=== PATIENT | male | born 1970 | race Caucasian/White ===

== ENCOUNTER 2016-10-07 13:24 | Emergency (ER) | payer BC ==
[~2016-10-07] VITALS: Wt 57.0 kg
[~2016-10-07 13:24] MED LIST: AMOX1TAB10 PO; HYDR-906 PO; INSU100C SC; LANT3I SC; METF500T4 PO
[2016-10-07 13:36] VITALS: Wt 57.0 kg
[2016-10-07] MEDS ORDERED: SOD CHLORIDE 0.9% 2,000 ML IV STA (17:11)
--- NOTE | 2016-10-07 17:23 | ERD ---
ER Documentation Chief Complaint Date/Time DATE: 10/07/16 TIME: 17:14 Chief Complaint ACCUCHECK SHOWED "HI" ASYMPTOMATIC: ACCUCHECK 430 IN TRAIGE @1320 HPI 46-year-old male history of testicular cancer in remission, insulin-dependent diabetes mellitus type 2, alcohol and methamphetamine abuse referred to the ED from his sober living facility for hyperglycemia. Patient states he took his regular metformin dose this morning along with 8 units of insulin after breakfast. They will not let him back until his blood sugar is controlled. He is otherwise asymptomatic. Denies chest pain or palpitation. No abdominal pain , nausea or vomiting. No headache or neck pain. Denies visual changes, focal weakness or numbness. No fevers or chills. Admits to last using crystal meth 2 days ago. ROS All systems reviewed and are negative except as per history of present illness. Medications Home Meds Active Scripts Metformin* (Glucophage*) 500 Mg Tab, 500 MG PO BID, #20 TAB Prov:DIONISIO DE GUZMAN MD 12/24/14 Reported Medications Levetiracetam* (Keppra*) 500 Mg Tablet, 500 MG PO BID, TAB 10/07/16 Insulin Glulisine (Apidra) 100 Units/Ml Soln, 8 UNITS SQ TID, #1 VIAL 10/07/16 Insulin Glargine* (Lantus*) 100 Unit/Ml Soln, 25 UNITS SC QHS, EA 12/24/14 Discontinued Reported Medications Insulin Lispro (Humalog) 100 U/Ml Cartridge, 0 SC SLIDING SCALE AC, EA 12/24/14 Discontinued Scripts Hydrocodone/Acetaminophen ([place] 5-325 Tablet) 1 Each Tablet, 2 TAB PO Q6H Y for PAIN, #20 TAB Prov:NEELAM ETIENNE PA-C 06/02/16 Amoxicillin/Potassium Clav (Amox-Clav 875-125 mg Tablet) 875-125 mg Tab, 1 TAB PO BID, #20 TAB Prov:NEELAM ETIENNE PA-C 06/02/16 Allergies Allergies: Coded Allergies: No Known Allergy (Unverified , 10/07/16) PMhx/Soc Reviewed in chart. As per HPI per History of Surgery: Yes (Orchiectomy, craniotomy.) Anesthesia Reaction: No Hx Neurological Disorder: No Hx Respiratory Disorders: No Hx Cardiac Disorders: No Hx Psychiatric Problems: No Hx Miscellaneous Medical Probl: Yes (DM, testicular cancer) Hx Alcohol Use: Yes Hx Substance Use: No Hx Tobacco Use: Yes FmHx No stroke or cancer. Not relevant to presenting complaint. Physical Exam Vitals Vital Signs Date Time Temp Pulse Resp B/P Pulse Ox O2 Delivery O2 Flow Rate FiO2 10/07/16 19:52 97.9 72 19 106/76 100 Room Air 10/07/16 18:30 97.4 65 20 146/97 100 Mechanical Ventilator 10/07/16 17:14 76 17 125/86 100 Room Air 10/07/16 13:36 98.0 98 18 120/80 99 Physical Exam Const: Alert, no acute distress. Head: Atraumatic Eyes: Normal Conjunctiva. Pupils equal reactive to light extraocular movements are intact no nystagmus. ENT: Normal External Ears, Nose and Mouth. Neck: Full range of motion. Nontender. Resp: Clear to auscultation bilaterally Cardio: Regular rate and rhythm, no murmurs Abd: Soft, non tender, distended. Bowel sounds are present. No rebound or guarding. Skin: No petechiae or rashes Back: No midline or flank tenderness Ext: No cyanosis, or edema Neur: Awake and alert. Cranial nerves II through XII are grossly intact no focal deficit observed Psych: Normal Mood and Affect Result Diagram: 10/07/16 1715 10/07/16 1715 Results 24 hrs Laboratory Tests Test 10/07/16 13:35 10/07/16 17:10 10/07/16 17:15 10/07/16 17:37 Bedside Glucose 430mg/dL 418mg/dL White Blood Count 4.510^3/ul Red Blood Count 4.2910^6/ul Hemoglobin 13.8g/dl Hematocrit 39.3% Mean Corpuscular Volume 91.6fl Mean Corpuscular Hemoglobin 32.2pg Mean Corpuscular Hemoglobin Concent 35.1g/dl Red Cell Distribution Width 13.5% Platelet Count 05531^3/UL Mean Platelet Volume 9.3fl Neutrophils % 58.8% Lymphocytes % 32.1% Monocytes % 5.8% Eosinophils % 2.7% Basophils % 0.4% Nucleated Red Blood Cells % 0.0/100WBC Neutrophils # 2.610^3/ul Lymphocytes # 1.410^3/ul Monocytes # 0.310^3/ul Eosinophils # 0.110^3/ul Basophils # 0.010^3/ul Nucleated Red Blood Cells # 0.010^3/ul Sodium Level 133mmol/L Potassium Level 4.5mmol/L Chloride Level 103mmol/L Carbon Dioxide Level 21mmol/L Anion Gap 14 Blood Urea Nitrogen 12mg/dl Creatinine 0.62mg/dl Glucose Level 427mg/dl Calcium Level 8.8mg/dl Bedside Urine pH (LAB) 6.0 Bedside Urine Protein (LAB) Negative Bedside Urine Glucose (UA) 0.50% Bedside Urine Ketones (LAB) Negative Bedside Urine Blood Negative Bedside Urine Nitrite (LAB) Negative Bedside Urine Leukocyte Esterase (L Negative Test 10/07/16 18:20 10/07/16 19:11 Bedside Glucose 300mg/dL 215mg/dL Current Medications Medications (Trade) Dose Ordered Sig/Sandie Route PRN Reason Start Time Stop Time Status Last Admin Dose Admin Sodium Chloride (NS) 2,000 ml @ 1,000 mls/hr Q2H STAT IV 10/07/16 17:11 10/07/16 19:10 DC 10/07/16 18:07 Insulin Human Lispro (Humalog) 10 unit ONCE STAT SC 10/07/16 18:02 10/07/16 18:22 DC Insulin Human Lispro (Humalog) 8 unit ONCE STAT SC 10/07/16 18:21 10/07/16 18:23 DC 10/07/16 19:17 Procedures/MDM DOCUMENTS REVIEWED: ED nurse, prior ED ED COURSE: Normal saline 1 L. REEXAMINATION/REEVALUATION: Time: 19:29. Accu-Chek 250 mg/dL. MEDICAL DECISION MAKIN-year-old male history of testicular cancer in remission, insulin-dependent diabetes mellitus type 2, alcohol and methamphetamine abuse referred to the ED from his sober living facility for hyperglycemia. Patient presents with hyperglycemia likely due to noncompliance and dietary indiscretions. No DKA or HONK. No evidence of an occult infectious or intraabdominal process. Improved with SC insulin and hydration. Stable for discharge with precautionary instructions, diabetic counseling and outpatient followup. Counseled patient regarding diagnostic workup, diagnosis and need for followup. Understands to return to ED if symptoms recur, worsen or any other concerns. Departure Diagnosis: Primary Impression: Hyperglycemia due to type 2 diabetes mellitus Diabetes mellitus train conductor insulin use: with train conductor use Qualified Code: E11.65 - Type 2 diabetes mellitus with hyperglycemia, with long-term current use of insulin Condition: JEANNE Kumar MD Oct 07, 2016 17:23
[2016-10-07 17:27] LABS: ADD SCAN DIFF NO
[2016-10-07 17:29] LABS: BASOPHILS % 0.4 % (0.0-2.0); EOSINOPHILS # 0.1 10^3/ul (0.0-0.5); EOSINOPHILS % 2.7 % (0.0-7.0); HEMATOCRIT 39.3 % (42.0-52.0); HEMOGLOBIN 13.8 g/dl (14.0-18.0); LYMPHOCYTES # 1.4 10^3/ul (0.8-2.9); LYMPHOCYTES % 32.1 % (15.0-51.0); MEAN CORPUSCULAR HEMOGLOBIN 32.2 pg (29.0-33.0); MEAN CORPUSCULAR HGB CONC 35.1 g/dl (32.0-37.0); MEAN CORPUSCULAR VOLUME 91.6 fl (82.0-101.0); MEAN PLATELET VOLUME 9.3 fl (7.4-10.4); MONOCYTE # 0.3 10^3/ul (0.3-0.9); MONOCYTES % 5.8 % (0.0-11.0); NEUTROPHIL # 2.6 10^3/ul (1.6-7.5); NEUTROPHILS % 58.8 % (39.0-77.0); PLATELET COUNT 394 10^3/UL (140-415); RED BLOOD COUNT 4.29 10^6/ul (4.70-6.10); RED CELL DISTRIBUTION WIDTH 13.5 % (11.5-14.5); WHITE BLOOD COUNT 4.5 10^3/ul (4.8-10.8)
[2016-10-07 17:37] LABS: URINE BLOOD (Dip) POC Negative (NEGATIVE)
[2016-10-07] MEDS ORDERED: API SQ (17:44)
[2016-10-07] MEDS ORDERED: LEVE-5 PO (17:44)
[2016-10-07 17:51] LABS: CALCIUM 8.8 mg/dl (8.4-10.2); CREATININE 0.62 mg/dl (0.61-1.24); POTASSIUM 4.5 mmol/L (3.5-5.1)
[2016-10-07] MEDS ORDERED: INSULIN LISPRO 100 UNIT/ML VIAL SC STA ×2 (18:02→18:21)
[2016-10-07 19:52] VITALS: BP 106/76; PULSE 72; RESP 19; TEMP 97.9
== END 2016-10-07 19:52 | disposition home or self-care (01) ==
LOC: E/R 13:24
DX: E11.65 Type 2 diabetes mellitus with hyperglycemia (principal); F17.210 Nicotine dependence, cigarettes, uncomplicated; Z85.47 Personal history of malignant neoplasm of testis
CPT/HCPCS: 80048; 81003; 82962; 85025; 96360; 96361; 96372; J1815; J7030; Z7502